=== PATIENT | male | born 1955 | race Caucasian/White ===

== ENCOUNTER → 2019-02-11 | Outpatient (CLI) | payer OTHER, SELFPAY ==
--- NOTE | 2019-02-11 | IMM_PTH ---
PATIENT: BELLA SHEA LOC: [facility] U#:[id number] AGE/SX: 63/M ROOM: RE02/11/[address]: Dr. Adal Medina MD : 1955 BED: DIS: 02/11/2019 SPEC #: [id number] RECD: 02/15/19 12:28 STATUS: KAUSHIK RUDOLPH #: [id number] PONCHO: 02/11/19 00:[address]: Adal Medina DEPT: IMMUNOHISTOCHEMISTRY RECD BY: Lou Campos ENTERED: 02/15/19 12:29 SP TYPE: IMMUNO OTHR DR: Dr. Krys Gonzalez MD Tissues: A - PROSTATE RIGHT D - PROSTATE LEFT Procedures: 34BE12 (add) P40 (add) 34BE12 (initial) PHYSICIAN & INSTITUTION [place] [id number] SPECIMEN INFORMATION: Tissue Source: A - Right prostate, apex, core biopsy, D - Left prostate, apex, core biopsy Clinical Info: Elevated PSA Specimen Number: [id number] A & D CPT code: 59485, 91763 x3 METHODOLOGY: Deparaffinized sections of prefer/formalin-fixed tissue or PAP/DQ stained slides are incubated with monoclonal/polyclonal antibodies/oligonucleotide probes. Localization is made via biotin free immunoperoxidase method. Appropriate controls are performed and reacted as expected. Results on target cell population are indicated in the following table: RESULTS: ANTIBODY / CLONE RESULT Block A P40 (BC28) negative 34BE12 (34BE12) negative Block D P40 (BC28) positive 34BE12 (34BE12) positive These tests were developed and their performance characteristics determined by [facility]. They may not have been cleared or approved by the U.S. Food and Drug Administration. The FDA has determined that such clearance or approval is not necessary. INTERPRETATION: A. Right prostate, apex, core biopsy: Adenocarcinoma. D. Left prostate, apex, core biopsy: Negative for carcinoma. SJ:therese 02/16/19
--- NOTE | 2019-02-11 | PROSBIL_PTH ---
PATIENT: BELLA SHEA LOC: [facility] U#:[id number] AGE/SX: 63/M ROOM: RE02/11/[address]: Dr. Adal Medina MD : 1955 BED: DIS: 02/11/2019 SPEC #: [id number] RECD: 02/12/19 12:27 STATUS: KAUSHIK RUDOLPH #: [id number] PONCHO: 02/11/19 00:[address]: Adal Medina DEPT: SURGICAL PATHOLOGY RECD BY: Zoltan Ramon ENTERED: 02/12/19 12:28 SP TYPE: PROST BX CY DR: Dr. Krys Gonzalez MD Tissues: A - PROSTATE RIGHT B - PROSTATE RIGHT C - PROSTATE RIGHT D - PROSTATE LEFT E - PROSTATE LEFT F - PROSTATE LEFT Procedures: PROSTATE BX HEADER OPERATION: Prostate biopsy PRE-OP DIAGNOSIS: Elevated PSA TISSUE SUBMITTED: A - Right apex, B - Right mid, C - Right base, D - Left apex, E - Left mid, F - Left base MICROSCOPIC DIAGNOSIS A. Right prostate, apex, core biopsy: Prostatic adenocarcinoma: [place] grade: 4 + 3 =7 Number of cores involved: 2 out of 2 Proportion of tissue involved: 5 to 10% Perineural invasion: Not identified. Greatest tumor length: 0.2 cm See comment. B. Right prostate, mid, core biopsy: Prostatic adenocarcinoma: Soha grade: 4+3=7 Number of cores involved: 2 out of 2 Proportion of tissue involved: ~50% Perineural invasion: present, focal Greatest tumor length: 1 cm C. Right prostate, base, core biopsy: Prostatic adenocarcinoma: Soha grade: 3+4=7 Number of cores involved: 2 out of 2 Proportion of tissue involved: ~25% Perineural invasion: Not identified. Greatest tumor length: 0.8 cm, discontinuous D. Left prostate, apex, core biopsy: Prostatic tissue, negative for malignancy. See comment. E. Left prostate, mid, core biopsy: Prostatic adenocarcinoma: Soha grade: 3+4=7 Number of cores involved: 2 out of 2 Proportion of tissue involved: ~40% Perineural invasion: Not identified. Greatest tumor length: 0.3 cm, discontinuous Focal high-grade prostatic intraepithelial neoplasia (HGPIN). F. Left prostate, base, core biopsy: Focal high-grade prostatic intraepithelial neoplasia (HGPIN). SJ:therese 02/15/19 COMMENT A & D. Immunohistochemistry ([id number]) supports the above diagnosis. Please make reference to previous specimen ([id number]) right and left prostate, needle core biopsy with diagnosis of no evidence of malignancy. Case has been reviewed in consultation with Dr. Gay who concurs with the above diagnosis. IDC:AM MICROSCOPIC DESCRIPTION Slides are reviewed. GROSS DESCRIPTION A - Received is one container designated prostate, right apex. The specimen consists of two elongated fragments of light hood-white soft tissue measuring 0.5 and 0.8 cm in length and 0.1 cm in diameter. The specimen is totally submitted in one cassette. B - Received is one container designated prostate, right mid. The specimen consists of two elongated fragments of light hood-white soft tissue each measuring 1.5 cm in length and 0.1 cm in diameter. The specimen is totally submitted in one cassette. C - Received is one container designated prostate, right base. The specimen consists of two elongated fragments of light hood-white soft tissue each measuring 1.2 cm in length and 0.1 cm in diameter. The specimen is totally submitted in one cassette. D - Received is one container designated prostate, left apex. The specimen consists of two elongated fragments of light hood-white soft tissue each measuring 1 cm in length and 0.1 cm in diameter. The specimen is totally submitted in one cassette. E - Received is one container designated prostate, left mid. The specimen consists of two elongated fragments of light hood-white soft tissue measuring 0.8 and 1 cm in length and 0.1 cm in diameter. The specimen is totally submitted in one cassette. F - Received is one container designated prostate, left base. The specimen consists of two elongated fragments of light hood-white soft tissue each measuring 1.2 cm in length and 0.1 cm in diameter. The specimen is totally submitted in one cassette. / SJ:rg 02/12/19 TC:0 [facility]: 03090 x6 ADDENDUM ADDENDUM ADDENDUM ADDENDUM ADDENDUM ADDENDUM ADDENDUM ADDENDUM ADDENDUM ADDENDUM ADDENDUM ADDENDUM ADDENDUM ADDENDUM ADDENDUM ADDENDUM ADDENDUM ADDENDUM ADDENDUM ADDENDUM ADDENDUM ADDENDUM ADDENDUM ADDENDUM ADDENDUM ADDENDUM ADDENDUM ADDENDUM ADDENDUM 05/05/2019 11:11 ADDENDUM 05/05/2019 11:11 ADDENDUM 05/05/2019 11:11 ADDENDUM 05/05/2019 11:11 ADDENDUM 05/05/2019 11:11 This addendum is added to incorporate an outside pathology consultation report. The case was examined at [facility] (#[id number]) and the following diagnosis was rendered. A. Right prostate, apex, core biopsy: - Prostatic adenocarcinoma, Soha score 7 (4+3), grade group 3, involving about 10% of prostate tissue volume and 2 of 2 needle core fragments. - No perineural invasion identified. B. Right prostate, mid, core biopsy: - Prostatic adenocarcinoma, [place] score 9 (4+5), grade group 5, involving about 50% of prostate tissue volume (with tertiary pattern 3) and 2 of 2 needle core fragments. - Perineural invasion is seen. C. Right prostate, base, core biopsy: - Prostatic adenocarcinoma, [place] score 6 (3+3), grade group 1, involving about 25% of prostate tissue volume and 2 of 2 needle core fragments. - No perineural invasion identified. D. Left prostate, apex, core biopsy: - Benign prostate tissue. E. Left prostate, mid, core biopsy: - Prostatic adenocarcinoma, [place] score 6 (3+3), grade group 1, involving about 40% of prostate tissue volume and 2 of 2 needle core fragments. - No perineural invasion identified. F. Left prostate, base, core biopsy: - Benign prostate tissue. Please see complete above mentioned consultation report in EMR
== END | disposition home or self-care (01) ==
PROVIDERS: Family Provider Family Medicine; PCP Family Medicine; Referring Provider Urology; Visit Provider Urology
DX: R97.20 Elevated prostate specific antigen [PSA] (principal)
CPT/HCPCS: 88305; 88341; 88342; G0416

== ENCOUNTER → 2019-02-19 08:45 | Outpatient (CLI) | payer OTHER, SELFPAY ==
--- NOTE | 2019-02-19 08:54 | CT_ITS ---
STUDY: CT ABDOMEN AND PELVIS WITH CONTRAST REASON FOR EXAM: Male, 63 years old. Prostate cancer. Study performed for staging. RADIATION DOSAGE (If Supplied By Facility): CTDIvol = ( 12.51 ) mGy, DLP = ( 567.26 ) mGycm TECHNIQUE: Transaxial images were obtained from the dome of the diaphragm to the symphysis pubis without oral contrast. Isovue 300 100 IV was administered. Sagittal and coronal images were reconstructed. Individualized dose optimization techniques were used for this CT. COMPARISON: None. FINDINGS: The visualized lung bases are unremarkable. The visualized portions of the heart are within normal limits. Normal liver. Normal gallbladder and extrahepatic biliary system. Normal spleen. Normal pancreas. Normal bilateral adrenal glands. Normal right kidney. Normal left kidney. Normal visualized stomach. Normal small intestine. There are multiple colonic diverticula consistent with diverticulosis. The appendix is visualized and appears normal. Normal abdominal aorta. Normal inferior vena cava. Normal retroperitoneum. Normal urinary bladder. There is a small umbilical hernia containing fat. Normal osseous structures. CT/Abdomen/Pelvis WITH Contrast IMPRESSION: Colon diverticulosis. There is a small umbilical hernia containing fat. There is no evidence of metastatic lesions in the abdomen or the pelvis. Electronically Signed: Mansi Manjarrez, at 2:19 EDT Tel , Service support ,
[2019-02-19 09:11] LABS: CREATININE FINGERSTICK 1.1 mg/dL (0.70-1.30); EGFR FINGERSTICK > 60.0000 mL/min (>60)
== END ==
PROVIDERS: Family Provider Family Medicine; PCP Family Medicine; Referring Provider Urology; Visit Provider Urology
DX: C61 Malignant neoplasm of prostate (principal)
CPT/HCPCS: 74177; Q9967

== ENCOUNTER → 2019-02-24 09:16 | Outpatient (CLI) | payer OTHER, SELFPAY ==
--- NOTE | 2019-02-24 09:18 | NM_ITS ---
CLINICAL: 63-year-old male with reported history of primary prostate carcinoma. WHOLE BODY 99m Tc MDP RADIONUCLIDE BONE SCINTIGRAPHY COMPARISON: CT of the abdomen-pelvis report 02/19/2019 FINDINGS: Following the intravenous administration of 25.6 mCi of 99m Tc MDP, whole body bone images reveal: 1. Increased radiopharmaceutical concentration is identified in the acromioclavicular, glenohumeral and sternoclavicular compartments of both shoulders, lower cervical spine posteriorly on the left and right, fifth lumbar vertebra posteriorly on the right, the right wrist, bilateral knees, and the medial compartment of the right ankle. 2. The remaining skeletal structures are scintigraphically unremarkable with normal-appearing renal images and urinary bladder activity identified. NM/Bone Scan Whole Body IMPRESSION: 1. The increase in tracer concentration identified in the cervical and lumbar spine, right wrist, both knees, right ankle, bilateral shoulders is most consistent with degenerative arthritis. 2. There is no definitive scintigraphic evidence of diffuse axial skeletal metastatic disease on the current examination. Electronically Signed: Axel Hu DO at 9:39 EDT Tel , Service support ,
== END ==
PROVIDERS: Family Provider Family Medicine; PCP Family Medicine; Referring Provider Urology; Visit Provider Urology
DX: C61 Malignant neoplasm of prostate (principal)
CPT/HCPCS: 78306

== ENCOUNTER 2019-04-14 06:00 | Day surgery (SDC) | payer OTHER, SELFPAY ==
[2019-04-06 10:07] VITALS: BP 110/55; PULSE 65; RESP 18; TEMP 37; O2SAT 99; BMI 23.9
--- NOTE | 2019-04-06 10:32 | SDCEKG_ITS ---
Test Reason : Blood Pressure : / mmHG Vent. Rate : 056 BPM Atrial Rate : 056 BPM P-R Int : 134 ms QRS Dur : 088 ms QT Int : 410 ms P-R-T Axes : 067 054 047 degrees QTc Int : 395 ms Sinus bradycardia with sinus arrhythmia Otherwise normal ECG Confirmed by LARRY WARREN ([id number]), editor department MORGAN RUIZ ([id number]) on 04/09/2019 10:54:53 AM Referred By: Adal Medina Confirmed By:LARRY WARREN
[2019-04-06 11:51] LABS: Hematocrit 41.1 % (40-54); Hemoglobin 13.6 g/dl (13.0-16.5); Mean Corp Hgb Conc 33.1 g/gl (32-36); Mean Corpuscular Hgb 29.9 pg (27.0-32.0); Mean Corpuscular Volume 90.3 fL (80-94); Mean Platelet Vol. 9.2 fl (6.2-12.0); Platelet Count 285 K/mm3 (150-450); RBC Distribution Width CV 12.8 % (11.6-14.6); RBC Distribution Width SD 42.1 fl (35.1-43.9); Red Blood Count 4.55 M/mm3 (4.6-6.2); Scan Indicated on CBC? Y/N NO; White Blood Count 3.5 K/mm3 (4.4-11.0)
[2019-04-06 12:09] LABS: Anion Gap 3 (5-15); BUN 20 mg/dL (7-18); BUN/Creat Ratio 24.5 RATIO (10-20); Calcium,Total 8.5 mg/dL (8.5-10.1); Chloride 105 mmol/L (98-107); Creatinine, Serum 0.82 mg/dL (0.70-1.30); EST Glomerular Filtration Rate 102 mL/min (>60); Est Glom Filt Rate - Afr Amer 123 mL/min (>60); Estimated Creatinine Clearance 96.44 ml/min; Glucose 85 mg/dL (74-106); Potassium 4.1 mmol/L (3.5-5.1); Sodium Level 136 mmol/L (136-145)
[2019-04-14] VITALS (16 sets, daily range): BP systolic 89–128; BP diastolic 55–75; PULSE 44–68; RESP 16–20; TEMP 35.9–36.7; O2SAT 95–100; BMI 23.9
--- NOTE | 2019-04-14 07:30 | PROST_PTH ---
PATIENT: BELLA SHEA [place] [facility] [place][id number] AGE/SX: 64/M ROOM: RE04/14/[address]: Dr. Adal Medina MD : 1955 BED: DIS: 04/15/2019 SPEC #: [id number] RECD: 04/14/19 15:03 STATUS: KAUSHIK RUDOLPH #: [id number] PONCHO: 04/14/19 07:[address]: Adal Medina DEPT: SURGICAL PATHOLOGY RECD BY: Ray Wilson ENTERED: 04/15/19 07:59 SP TYPE: PROSTATE OTHR DR: Dr. Alexi Cruz MD Tissues: A - Prostate, NOS B - Prostate, NOS C - Lymph node of pelvis, NOS D - Lymph node of pelvis, NOS Procedures: Surgery Specimen Level IV Surgery Specimen Level HEADER OPERATION: Laparoscopic robotic radical prostatectomy with nerve monitor PRE-OP DIAGNOSIS: Prostate cancer TISSUE SUBMITTED: A - Prostate, B - Fat over prostate, C - Right pelvic lymph node, C - Left pelvic lymph node MICROSCOPIC DIAGNOSIS A. Prostate, radical prostatectomy: Adenocarcinoma. See cancer checklist. B. Fat over prostate, biopsy: Mature adipose tissue. No evidence of malignancy. C. Right pelvic lymph node, biopsy: Two out of two lymph nodes, negative for carcinoma. D. Left pelvic lymph node, biopsy: Mature adiposes tissue. See comment. AM:therese 04/16/19 COMMENT A. PROSTATE CANCER (RADICAL) SUMMARY: Procedure - radical prostatectomy Prostate size - 4.5 x 4 x 3.5 cm Lymph node sampling - pelvic lymph node dissection Histologic type - adenocarcinoma Histologic grade (Soha Pattern): Primary pattern - 3 Secondary pattern - 4 Tertiary pattern - 5 Total Hannacroix score - 8 (5+3) Tumor Quantitation: Tumor size - 3 x 2.5 x 2 cm (from glass slides) Extraprostatic extension - not identified Seminal vesicle invasion - not identified Margins - margins involved by invasive carcinoma. Right posterior - lateral margin. Apical shaved margin. Treatment effect on carcinoma - not identified Lymph-Vascular invasion - not identified Perineural invasion - present (extensive) Regional lymph nodes: Number examined - 2 Number involved - 0 See specimen C. PATHOLOGIC STAGE: pT2c N0 Mx The above summary is in compliance with [employer] [place] [employer] (CAP) Cancer Protocols Checklist and [place] Joint Committee on Cancer (AJCC), Staging Manual, 8th Ed. D. Lymphoid tissue is not represented in the biopsy. Clinical correlation is suggested. Case has been reviewed in consultation with Dr. Burgos who concurs with the above diagnosis. IDC:CE MICROSCOPIC DESCRIPTION Slides are reviewed. GROSS DESCRIPTION A - Received in fixative is one container labeled with the patient's name and designated prostate. The specimen consists of a prostate with attached seminal vesicles. The prostate gland measures 4.5 cm transversely, 3.5 cm craniocaudally and 4 cm anterior-posteriorly. On palpation, no mass lesions are identified. The specimen weighs 46.7 gm and is differentially inked as follows: anterior surface - red, right half - blue and posterior portion of the gland in black ink. On palpation, no rubbery nodularity or mass lesions are identified. The prostate is cut from apex to base of gland at approximately 3 to 4 mm sections. No distinct mass lesions are identified. Communication And Outreach Manager sections are submitted as follows: 1 - apex (distal urethral margin, shave), 2 - bladder shave, 3 - seminal vesicles, 4 - most basal section of prostate, 5-9 - apex of gland, 10-15 - mid portion of gland, 16-19 - basal portion of gland. B - Received in fixative is one container labeled with the patient's name and designated fat over prostate. The specimen consists of an irregular fragment of fatty tissue measuring 4.5 x 2 x 0.7 cm. No mass lesions are identified. The specimen is submitted in its entirety in one cassette. C - Received in fixative is one container labeled with the patient's name and designated right pelvic lymph node. The specimen consists of an irregular fragment of somewhat indurated yellow fatty tissue measuring 2.5 x 2 x 0.2 cm. The specimen is submitted in its entirety in one cassette. D - Received in fixative is one container labeled with the patient's name and designated left pelvic lymph node. The specimen consists of an irregular fragment of somewhat indurated yellow fatty tissue measuring 3 x 3 x 1 cm. No distinct nodules resembling lymph nodes are palpated. The specimen is sectioned and totally submitted in two cassettes. / AM:therese 04/15/19 TC:0 CPT: 71674, 65491 x3
[2019-04-14] MEDS: Cefazolin 2 GM in 0.9% Normal Saline 100 ML IV (07:44)
--- NOTE | 2019-04-14 11:37 | OP.PCM_ITS ---
Report of Operation Date of Procedure: 04/14/19 Pre-Operative Diagnosis: Prostate cancer Post-Operative Diagnosis: Same Surgery/Procedure Performed:: Laparoscopic robotic assisted radical prostatectomy with bilateral nerve sparing, bilateral pelvic lymph node dissection, suture suspension of the urethra, EMG monitoring of the pelvic nerves and urethral sphincter Description of Surgical Findings:: 64-year-old male with prostate cancer, we discussed the options of management for his prostate cancer including surgery radical prostatectomy observation. Patient was fairly young and healthy he wants to proceed with curative intent surgery he also was very concerned about losing erection so we will do nerve sparing but he understands that there is always a risk of potential for loss of erections incontinence failure to cure him of surgery and requiring more treatments after surgery such as radiation and chemotherapy hormone therapy. After reviewing this with the patient and his and the family he signed the consent form and working to proceed with surgery today. 64-year-old male taken back to the operating room at the smooth induction of general anesthesia he was placed in Supine on the table in the dorsolithotomy position with the legs in stirrups for approach the prostate with a radical prostatectomy with a robot. The abdomen was shaved prepped and draped in usual sterile fashion made an incision above the umbilicus carried down to the fascia and entered the peritoneal cavity with a Veress needle insufflated the peritoneal peritoneal cavity with CO2 gas and then docked my camera arm right arm left arm second left arm operations manager assistant suction and then the air seal port. After the ports were placed and the robot was docked I first released the sigmoid colon off the lateral wall I then went down deep to the pelvis below the bladder and open up the space of Carrillo below the bladder and dissected out the vas deferens and seminal vesicle bilaterally created a nice space above the 90s fascia from the prostate I then dropped the bladder to create created the space of Retzius and put the bladder on traction and then went to the pelvic lymph nodes on the right side identified the landmarks there was the iliac vein the obturator nerve the left lateral pelvic sidewall the noted [place] all the nodes packet in this area were dissected out and sent off as specimen we went to then to the left side, the other side and d issected out the space of the obturator space again in the pelvic lymph nodes the fishing vessel operator space identified the obturator nerve the obturator vein and artery the iliac vein noted [place] in the lateral pelvic sidewall after all this was dissected out then I went to the prostate we incised the puboprostatic ligaments we opened up the fascia over the prostate and the apex dissected the apex off the levator muscles placed a stitch in the dorsal vein complex then came back to the bladder neck dissected between the bladder and the prostate with electrocautery we then passed the EMG electrodes into the abdomen place the electrode to the lateral pelvic wall identified the nerve bundles are running deep in the pelvis and the right side and the nerve bundles are running deep in the pelvis and the left side and then also the nerve bundle close to the sphincter once with these were identified the location was noted that I had started dissection of the prostate took the apical tissue and freed up the fascia off the prostate from the apex back to the base on the right side then took the vascular pedicle on the right side and identified the neurovascular bundle on the right side and slowly tease it off the posterior aspect of the prostate midway through the dissection there was a little bit adherent had to be carried very careful to dissect the neurovascular bundle off the prostate as to avoid leaving any tissue behind and then finally got the neurovascular bundle dissected all the way up to the apex apex fairly good dissection on the right side. Went went to the left side again incised the endopelvic fascia on the left side over the top of the prostate rolled the fascia off the prostate below the draining vessels I then identified the nerve neurovascular bundle came back to the left side pedicle took the pedicle and then got below the prostate and then slowly teased the neurovascular bundle off the prostate of the left side all the way to the apex this I came up very nicely very complete dissection there was no adherence to the neurovascular bundle on the left side to the prostate like the right side was able to free it up very nicely all the way to the apex we then checked the EMG electrode again there was good stimulation in the left side good stimulation on the right side both nerves were intact then went to the sphincter complex we transected through the dorsal vein complex case an extra stitch in the dorsal vein complex and then transected through the urethra the prostate was then attached an Endo Catch bag we then performed a suture suspension of the urethra using 3-0 Vicryl stitches this was then spun the urethra and then we brought the bladder neck to the urethra and then over the catheter we closed the bladder and then we closed the top of the bladder we did the anastomosis to the bladder to the urethra then there was a little Of the top of the bladder we closed separately we then put a [place] tip catheter in the bladder we filled the bladder up the water and there was no leakage from the bladder and then put 10 cc in the balloon put her back in traction then at this point the robot was undocked we extracted the prostate through the supraumbili kt site we closed our air seal port then to 1012 Edwar Scruggs stitch. We entered the clozapine incisions with subcuticular stitches Grant was flushed and was draining easily and flush flushed very easily with no blood clots and then the patient anesthetic is currently being reversed. Type of Anesthesia:: General Drains: grant. Estimated Blood Loss (mL): 200 - Admit VTE Documentation VTE Present on Admission: No VTE Mechan Device Prophylaxis: SCD's
[2019-04-14 12:39] LABS: Hematocrit 35.9 % (40-54); Mean Corp Hgb Conc 33.4 g/gl (32-36); Mean Corpuscular Hgb 30.2 pg (27.0-32.0); Mean Corpuscular Volume 90.4 fL (80-94); Mean Platelet Vol. 8.8 fl (6.2-12.0); Platelet Count 207 K/mm3 (150-450); RBC Distribution Width CV 12.7 % (11.6-14.6); RBC Distribution Width SD 41.8 fl (35.1-43.9); Red Blood Count 3.97 M/mm3 (4.6-6.2); White Blood Count 6.9 K/mm3 (4.4-11.0)
[2019-04-14 12:46] LABS: Scan Indicated on CBC? Y/N NO
[2019-04-14 12:55] LABS: Anion Gap 3 (5-15); BUN 13 mg/dL (7-18); BUN/Creat Ratio 15.2 RATIO (10-20); Calcium,Total 7.9 mg/dL (8.5-10.1); Chloride 106 mmol/L (98-107); Creatinine, Serum 0.86 mg/dL (0.70-1.30); EST Glomerular Filtration Rate 96 mL/min (>60); Est Glom Filt Rate - Afr Amer 116 mL/min (>60); Estimated Creatinine Clearance 91.96 ml/min; Glucose 138 mg/dL (74-106); Potassium 4.2 mmol/L (3.5-5.1); Sodium Level 137 mmol/L (136-145)
--- NOTE | 2019-04-14 14:08 | NURSING ---
GILDA IN PACU NOTIFIED OF PT C/O RIGHT EYE PAIN AND LIGHT SENSITIVTY, PT UNABLE TO OPEN EYE-SHE WILL NOTIFIY ANESTHESIA PT ABLE TO SMILE AND HAND GRASPS EQUAL AND STRONG
[2019-04-14 14:26] LABS: Bedside Glucose 130 mg/dL (70-110)
--- NOTE | 2019-04-14 14:42 | NURSING ---
PT C/O RIGHT EYE PAIN, INABLITY TO OPEN , WHEN OPENED BY NURSE, EYE TEARS AND PT SQUEEZES EYE SHUT, PT HAND GRASPS ARE EQUAL (PT LEFT HAND AND RIGHT SL. WEAKER) PT SMILE IS NOT EVEN W/ RIGHT DROOP, STATES HE HAS A FUNNY SMILE BUT NOT THAT EXAGERATED-PT IS STILL GROGGY FROM SURGERY, IS ABLE TO ANSWER SIMPLE QUESTIONS-STROK TEAM CALLED, STROKE TEAM ARRIVED AND ASSESSED PT AND THEY FELT AT THIS TIME, A CT WAS NOT INDICATED-DR SEVILLA IN ROOM- AT BEDSIDE-PT AND UPDATED REPORT GIVEN TO JULIANA PONCE NURSE-AT THIS TIME PT ALSO C/O GRITTINESS IN LEFT EYE-SPOKE W/ GILDA RN IN PACU AND IT WAS AGREED IF THE PT CONTINUED TO HAVE EYE SYMPTOMS, ANESTHESIA COULD BE CALLED FOR EYE OINTMENT-VSS, NO WORSENING OF SYMPTOMS, PT SMILE IMPROVED
[2019-04-14] MEDS: 0.45% Normal Saline 1,000 ML 125 ML IV ×2 (15:49→23:58)
[2019-04-14] MEDS: Ketorolac 15 MG/ML Vial IV ×2 (15:50→19:40)
[2019-04-14] MEDS: Gentamicin Sulfate 1 OPTH.BTL 2 DRP LEFT EYE ×2 (17:37→22:44)
[2019-04-14] MEDS: Pantoprazole Sodium 20 MG Tablet PO (17:39)
[2019-04-14] MEDS: Docusate Sodium 100 MG Capsule PO ×2 (17:40→22:44)
[2019-04-14] MEDS: Ciprofloxacin 500 MG Tablet PO (17:40)
[2019-04-14] MEDS: 0.9% NaCl Peripheral Flush Adult/Peds IV (19:40)
--- NOTE | 2019-04-14 20:02 | NURSING ---
sat at bedside, stood and ambulated to chair. pt alexandra well. denies feeling dizzy or lightheaded.
[2019-04-14 20:26] LABS: Bedside Glucose 182 mg/dL (70-110)
[2019-04-15] MEDS: Ketorolac 15 MG/ML Vial IV ×3 (01:42→13:41)
[2019-04-15] MEDS: Gentamicin Sulfate 1 OPTH.BTL 2 DRP LEFT EYE ×4 (01:42→13:40)
[2019-04-15] MEDS: 0.9% NaCl Peripheral Flush Adult/Peds IV ×2 (01:43→13:47)
[2019-04-15 01:46] VITALS: BP 109/64; PULSE 67; RESP 16; TEMP 36.9; O2SAT 98
[2019-04-15] MEDS: Enoxaparin 40 MG/0.4 ML Syringe SC (05:45)
[2019-04-15 06:23] LABS: Hematocrit 35.7 % (40-54); Hemoglobin 12.2 g/dl (13.0-16.5); Mean Corp Hgb Conc 34.2 g/gl (32-36); Mean Corpuscular Hgb 30.6 pg (27.0-32.0); Mean Corpuscular Volume 89.5 fL (80-94); Mean Platelet Vol. 9.3 fl (6.2-12.0); Platelet Count 245 K/mm3 (150-450); RBC Distribution Width CV 12.8 % (11.6-14.6); RBC Distribution Width SD 41.3 fl (35.1-43.9); Red Blood Count 3.99 M/mm3 (4.6-6.2); White Blood Count 6.7 K/mm3 (4.4-11.0)
[2019-04-15 06:24] LABS: Scan Indicated on CBC? Y/N NO
[2019-04-15 06:31] LABS: Anion Gap 7 (5-15); BUN 13 mg/dL (7-18); BUN/Creat Ratio 16.7 RATIO (10-20); Calcium,Total 7.9 mg/dL (8.5-10.1); Chloride 104 mmol/L (98-107); Creatinine, Serum 0.78 mg/dL (0.70-1.30); EST Glomerular Filtration Rate 107 mL/min (>60); Est Glom Filt Rate - Afr Amer 130 mL/min (>60); Estimated Creatinine Clearance 101.39 ml/min; Glucose 102 mg/dL (74-106); Potassium 4.2 mmol/L (3.5-5.1); Sodium Level 136 mmol/L (136-145)
--- NOTE | 2019-04-15 07:17 | DCINST_ITS ---
Discharge Diet: Light diet - advance as tolerated Discharge Activity: May Not Drive, May not drive while taking narcotic pain medications., May Shower Return to work on:: 05/26/19 May shower in (days): 1 Lifting Restrictions: no lifting. Call your doctor if your incision/area has: Continuous Slow Oozing, Sudden Increased Bleeding, Increased Pain/ Swelling, Increased Redness, Foul Smelling Discharge, Swelling at the incision site Call your doctor if you observe: Fever of 101 or Higher, Inability to have a bowel movement, Uncontrolled pain Suture Line Care: Avoid Pulling/Pushing, Avoid Pinching/Bending Cleanse incision/area with: Soap & Water Catheter: Pulliam to leg bag, Pulliam to large bag Drain: [place] Allergies/Adverse Reactions: Allergies No Known Allergies Allergy (Verified 04/06/19 09:58) Medications to take at Discharge Ciprofloxacin [Cipro] 500 mg PO BID #20 tab 04/14/19 Docusate Sodium [Colace] 100 mg PO BID #20 cap 04/14/19 Hydrocodone/Acetaminophen [Adrian 5-325 Tablet] 1 ea PO Q4H PRN PRN #14 tab 04/14/19 The following prescriptions were given: Hydrocodone/Acetaminophen [Adrian 5-325 Tablet] 1 ea PO Q4H PRN PRN #14 tab PRN Reason: Pain Ciprofloxacin [Cipro] 500 mg PO BID #20 tab Docusate Sodium [Colace] 100 mg PO BID #20 cap Primary Care Physician: Alexi Cruz [Primary Care Provider] - Test Results: Test results from this visit will be discussed in further detail at your follow- up appointment, if applicable. Please Follow Up With: Adal Medina MD When: please call to make an appointment.
[2019-04-15 07:50] VITALS: BP 102/50; PULSE 73; RESP 18; TEMP 37.1; O2SAT 98
[2019-04-15] MEDS: Pantoprazole Sodium 20 MG Tablet PO (09:23)
[2019-04-15] MEDS: Docusate Sodium 100 MG Capsule PO (09:23)
[2019-04-15] MEDS: Ciprofloxacin 500 MG Tablet PO (09:23)
[2019-04-15] MEDS: Magnesium Hydroxide 30 ML UDC 15 ML PO (10:20)
[2019-04-15 13:49] VITALS: BP 110/66; PULSE 72; RESP 18; TEMP 37.1; O2SAT 97
== END 2019-04-15 14:25 | disposition home or self-care (01) ==
LOC: SDC 04-15 08:07 → MS3 04-15 08:07
PROVIDERS: Family Provider Family Medicine; PCP Family Medicine; Referring Provider Urology; Visit Provider Urology
PROC: 0VT04ZZ Resection of Prostate, Percutaneous Endoscopic Approach (ICD-10-PCS; CPT 55866; principal; 2019-04-14 07:10)
DX: C61 Malignant neoplasm of prostate (principal); K21.9 Gastro-esophageal reflux disease without esophagitis
CPT/HCPCS: 38570; 55866; 36415; 80048; 82962; 85027; 86850; 86900; 88305; 88307; 88309; 93005; J7040; J7120; A4216; J2405

== ENCOUNTER → 2019-11-16 09:54 | Outpatient (CLI) | payer OTHER, SELFPAY ==
[2019-11-16 09:33] VITALS: BMI 23.9
[2019-11-16 10:19] LABS: Hematocrit 41.3 % (40-54); Hemoglobin 13.6 g/dL (13.0-16.5); Mean Corp Hgb Conc 32.9 g/dL (32-36); Mean Corpuscular Hgb 30.8 pg (27.0-32.0); Mean Corpuscular Volume 93.7 fL (80-94); Mean Platelet Vol. 8.6 fl (6.2-12.0); Platelet Count 235 K/mm3 (150-450); RBC Distribution Width CV 12.7 % (11.6-14.6); RBC Distribution Width SD 43.5 fl (35.1-43.9); Red Blood Count 4.41 M/mm3 (4.6-6.2); White Blood Count 3.9 K/mm3 (4.4-11.0)
[2019-11-16 10:32] LABS: Anion Gap 3 (5-15); BUN 17 mg/dL (7-18); BUN/Creat Ratio 17.8 RATIO (10-20); Calcium,Total 8.6 mg/dL (8.5-10.1); Chloride 105 mmol/L (98-107); Creatinine, Serum 0.95 mg/dL (0.70-1.30); EST Glomerular Filtration Rate 85 mL/min (>60); Est Glom Filt Rate - Afr Amer 103 mL/min (>60); Glucose 95 mg/dL (74-106); Potassium 4.2 mmol/L (3.5-5.1); Sodium Level 138 mmol/L (136-145)
== END ==
PROVIDERS: Family Provider Family Medicine; PCP Family Medicine; Referring Provider Surgery; Visit Provider Surgery
DX: Z01.818 Encounter for other preprocedural examination (principal)
CPT/HCPCS: 36415; 80048; 85027

== ENCOUNTER 2019-11-25 09:59 | Day surgery (SDC) | payer SELFPAY, OTHER ==
[2019-08-24 14:39] VITALS: BMI 23.9
--- NOTE | 2019-11-16 03:47 | HP_ITS ---
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 Is patient in pain?: No Allergies No Known Allergies Allergy (Verified 11/16/19 09:32) Medications Aspirin [Aspir 81] 81 mg PO PRN PRN 11/12/19 [History Confirmed 11/16/19] PFSH Medical History Ventral incisional hernia without obstruction or gangrene (Acute) Incisional hernia (Acute) Prostate cancer (Acute) Surgical History History of robot-assisted laparoscopic radical prostatectomy (Acute ~04/14/19) Social History (Updated 11/16/19 @ 15:47 by Janel Avendano PA-C) Smoking Status: Never smoker alcohol intake: never substance use type: does not use HPI HPI HPI: BELLA SHEA, is a 64 M who presents to the office today for HPI HPI Surgical H&P: Yes HPI: BELLA SHEA, is a 64 M who presents to the office today for an update history and physical. Patient denies recent hospitalizations or illnesses. Patient notes his last bout of anesthesia, he had what was thought to be stroke- like symptoms, however patient noted his symptoms were then diagnosed with vagal symptoms. Patient denies previous cardiac history or pulmonary history. Patient' previous history per Dr. Lam: BELLA SHEA, is a 64 M who presents to the office today for surgical consultation regarding a ventral incisional hernia related to robotic prostatectomy that he had performed at the [facility] on April 14, [address] Medina.. Patient states that he has increased bulging and intermittent discomfort at the site. He apparently has lost 10 pounds in weight since his discharge. He has not been seen in follow-up by his primary care physician Dr. Cruz as the patient did not think that was needed. 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 To complicate matters the patient was instructed that he had an anesthetic complication with failure to resolve. The report that the patient and significant other provide is that the patient on the floor developed a right- sided facial droop and the stroke team was called. Apparently they did not feel that a CT was indicated. Dr. Igor Gomez by report was involved in that evaluation. But then the patient was gotten in a chair and again by significant other reports the patient became white pale hypotensive syncopal for several minutes with difficulty to arouse. Apparently the patient was simply observed. There was no report of requiring blood transfusion. I do not see any urology postoperative surgical note. Do not see any nursing notes describe this additional syncopal episode. The patient was simply told that this was a delayed reaction to anesthesia ROS General General: No weight change, appetite, fatigue, colon cancer, breast cancer or weakness HEENT HEENT: No difficulty swallowing, eye injury, eye surgery, swollen glands or hoarseness Endo Endocrine: No thyroid disease, diabetes mellitus, thyroid cancer, Hair loss, heat intolerance or cold intolerance Skin Skin: No rash or changing moles Breast Breast: No left breast lump, right breast lump, nipple discharge, breast pain, abnormal mammogram, abnormal US or breast enlargement Musc Musculoskeletal: No back problems, arthritis, rheumatoid arthritis, gout or joint pain Cardio Cardiovascular: No murmur, pacemaker, heart disease, atrial fibrillation, high blood pressure, heart attack, heart stent, palpitations, shortness of breat with exertion or chest pain Psych Psychiatric: No depression, anxiety or hearing voices Resp Respiratory: No shortness of breath, No sleep apnea, No cough, No COPD, No asthma, No emphysema, No wheezing Gastro Gastrointestinal: No abdominal pain, No nausea or vomiting, No diarrhea, No constipation, No blood in stool, No acid reflux, No hemorrhoids, No ulcers, No gallbladder problem, No black,tarry stools Jose Alberto Hematologic: No blood thinners, No blood disorders, No bleeding, No anemia, No blood clots Neuro Neurologic: No weakness Exam Const General: cooperative, healthy appearing, comfortable, no acute distress HENMT Head: normal to inspection Eyes General: appearance normal, both eyes and all related structures Neck Neck: normal visual inspection Neck mass: No Chest Breast Palpation: No nipple discharge Resp Effort & Inspection: normal respiratory effort Auscultation: clear to auscultation bilaterally Cardio Rate: regular rate Rhythm: regular rhythm Heart Sounds: no murmurs GI Inspection: normal to inspection Palpation: soft, hernia (ventral incisional ) Skin General: no rashes or lesions noted Neuro General: no focal motor deficits, CN's II-XI intact bilaterally Extrem General: normal to inspection Psych Appearance: grossly normal Affect: normal affect Assessment & Plan Problems 1. Ventral incisional hernia without obstruction or gangrene K43.[address] Lam will plan to perform an open possible conversion to laparoscopic ventral incisional hernia repair with mesh. Procedure details, risks and benefits have been reviewed. Patient and his spouse have had the opportunity to ask and have questions answered. Patient verbally understands and agrees with the plan. Coding Level of Care Code No Charge Diagnoses Ventral incisional hernia without obstruction or gangrene K43.2 Comment Update H&P 11/16/19 1547 <Electronically signed by Janel gordon PA-C> Date _ Janel Avendano PA-C
[2019-11-16 09:33] VITALS: BMI 23.9
[2019-11-25] VITALS (7 sets, daily range): BP systolic 117–135; BP diastolic 74–98; PULSE 48–63; RESP 15–16; TEMP 36.2–36.9; O2SAT 99–100; BMI 24.0
[2019-11-25] MEDS: Lactated Ringers 1,000 ML 100 ML IV (10:28)
--- NOTE | 2019-11-25 11:59 | PCM.HP.BLA ---
Problem List (1) Ventral incisional hernia without obstruction or gangrene Status: Acute History and Physical Date of Admission: 11/25/19 Intake Visit Reasons: update h&p 11-25 ventral incis hernia RC Chief Complaint: update H&P for hernia repair Sound Recording Technician Required: No Is patient in pain?: No Allergies No Known Allergies Allergy (Verified 11/16/19 09:32) Medications Aspirin [Aspir 81] 81 mg PO PRN PRN 11/12/19 [History Confirmed 11/16/19] PFS Medical History Ventral incisional hernia without obstruction or gangrene (Acute) Incisional hernia (Acute) Prostate cancer (Acute) Surgical History History of robot-assisted laparoscopic radical prostatectomy (Acute ~04/14/19) Social History (Updated 11/16/19 @ 15:47 by Janel Avendano PA-C) Smoking Status: Never smoker alcohol intake: never substance use type: does not use HPI HPI HPI: BELLA SHEA, is a 64 M who presents to the office today for HPI HPI Surgical H&P: Yes HPI: BELLA SHEA, is a 64 M who presents to the office today for an update history and physical. Patient denies recent hospitalizations or illnesses. Patient notes his last bout of anesthesia, he had what was thought to be stroke-like symptoms, however patient noted his symptoms were then diagnosed with vagal symptoms. Patient denies previous cardiac history or pulmonary history. Patient' previous history per Dr. Lam: BELLA SHEA, is a 64 M who presents to the office today for surgical consultation regarding a ventral incisional hernia related to robotic prostatectomy that he had performed at the [facility] on April 14, [address] Medina.. Patient states that he has increased bulging and intermittent discomfort at the site. He apparently has lost 10 pounds in weight since his discharge. He has not been seen in follow-up by his primary care physician Dr. Cruz as the patient did not think that was needed. 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 To complicate matters the patient was instructed that he had an anesthetic complication with failure to resolve. The report that the patient and significant other provide is that the patient on the floor developed a right-sided facial droop and the stroke team was called. Apparently they did not feel that a CT was indicated. Dr. Igor Gomez by report was involved in that evaluation. But then the patient was gotten in a chair and again by significant other reports the patient became white pale hypotensive syncopal for several minutes with difficulty to arouse. Apparently the patient was simply observed. There was no report of requiring blood transfusion. I do not see any urology postoperative surgical note. Do not see any nursing notes describe this additional syncopal episode. The patient was simply told that this was a delayed reaction to anesthesia ROS General General: No weight change, appetite, fatigue, colon cancer, breast cancer or weakness HEENT HEENT: No difficulty swallowing, eye injury, eye surgery, swollen glands or hoarseness Endo Endocrine: No thyroid disease, diabetes mellitus, thyroid cancer, Hair loss, heat intolerance or cold intolerance Skin Skin: No rash or changing moles Breast Breast: No left breast lump, right breast lump, nipple discharge, breast pain, abnormal mammogram, abnormal US or breast enlargement Musc Musculoskeletal: No back problems, arthritis, rheumatoid arthritis, gout or joint pain Cardio Cardiovascular: No murmur, pacemaker, heart disease, atrial fibrillation, high blood pressure, heart attack, heart stent, palpitations, shortness of breat with exertion or chest pain Psych Psychiatric: No depression, anxiety or hearing voices Resp Respiratory: No shortness of breath, No sleep apnea, No cough, No COPD, No asthma, No emphysema, No wheezing Gastro Gastrointestinal: No abdominal pain, No nausea or vomiting, No diarrhea, No constipation, No blood in stool, No acid reflux, No hemorrhoids, No ulcers, No gallbladder problem, No black,tarry stools Jose Alberto Hematologic: No blood thinners, No blood disorders, No bleeding, No anemia, No blood clots Neuro Neurologic: No weakness Exam Const General: cooperative, healthy appearing, comfortable, no acute distress [facility] Head: normal to inspection Eyes General: appearance normal, both eyes and all related structures Neck Neck: normal visual inspection Neck mass: No Chest Breast Palpation: No nipple discharge Resp Effort & Inspection: normal respiratory effort Auscultation: clear to auscultation bilaterally Cardio Rate: regular rate Rhythm: regular rhythm Heart Sounds: no murmurs GI Inspection: normal to inspection Palpation: soft, hernia (ventral incisional ) Skin General: no rashes or lesions noted Neuro General: no focal motor deficits, CN's II-XI intact bilaterally Extrem General: normal to inspection Psych Appearance: grossly normal Affect: normal affect Assessment & Plan Problems 1. Ventral incisional hernia without obstruction or gangrene K43.[address] Lam will plan to perform an open possible conversion to laparoscopic ventral incisional hernia repair with mesh. Procedure details, risks and benefits have been reviewed. Patient and his spouse have had the opportunity to ask and have questions answered. Patient verbally understands and agrees with the plan. Coding Level of Care Code No Charge Diagnoses Ventral incisional hernia without obstruction or gangrene K43.2 Comment Update H&P 11/16/19 1547 <Electronically signed by Janel Avendano PA-C> Date Janel Avendano PA-C I have re-examined the patient. There are no clinical changes since date of exam.
--- NOTE | 2019-11-25 12:00 | DCINST_ITS ---
Discharge Diet: Light diet - advance as tolerated - if you have questions about your diet instructions, please talk to you doctor. Discharge Activity: May Not Drive - for 5-7 days or while taking narcotic pain medicine. May shower in (days): 2 Lifting Restrictions: 10 pounds Call your doctor if your incision/area has: Continuous Slow Oozing, Sudden Increased Bleeding, Increased Pain/ Swelling, Increased Redness, Foul Smelling Discharge Call your doctor if you observe: Fever of 101 or Higher Suture Line Care: Avoid Pulling/Pushing, Avoid Pinching/Bending Additional Dressing/Incision Instructions:: You may leave the white tape pressure dressing on for 2 days. You may then remove that and revealed the plastic dressing over which now you may shower. Change or remove plastic dres sing in 2 days after removal of the white tape dressing.. Leave steri-strips in place for 1 week. Allergies/Adverse Reactions: Allergies No Known Allergies Allergy (Verified 11/25/19 10:12) Medications to take at Discharge Aspirin [Aspir 81] 81 mg PO PRN PRN 11/12/19 Hydrocodone Bitart/Apap 5-325 [[place] 5MG-325MG] 1 tab PO Q6H PRN PRN 3 Days #10 tab 11/25/19 The following prescriptions were given: Hydrocodone Bitart/Apap 5-325 [[place] 5MG-325MG] 1 tab PO Q6H PRN PRN 3 Days #10 tab PRN Reason: Pain Transmission Status: Received by [id number] Primary Care Physician: Alexi Cruz MD [Primary Care Provider] - Test Results: Test results from this visit will be discussed in further detail at your follow- up appointment, if applicable. Please Follow Up With: Dewayne Lam MD - [phone] When: Call to make an appointment to be seen in about 10 days.
[2019-11-25] MEDS: Cefazolin 2 GM in 0.9% Normal Saline 100 ML IV (12:06)
[2019-11-25] MEDS: Bupivacaine 0.25% 30 ML Vial (13:35)
--- NOTE | 2019-11-25 13:42 | OP.PCM_ITS ---
Problem List (1) Ventral incisional hernia without obstruction or gangrene Status: Acute Report of Operation Date of Procedure: 11/25/19 Pre-Operative Diagnosis: Symptomatic supraumbilical ventral incisional hernia related to robotic prostatectomy Post-Operative Diagnosis: Supraumbilical ventral incisional hernia related to robotic prostatectomy associated with a small umbilical hernia Surgery/Procedure Performed:: Supra umbilical ventral incisional herniorrhaphy with ventralex ST hernia patch. Lot number [id number]. Reference #[id number]. Expiry date 04/27/2021 Description of Surgical Findings:: Timeout and informed consent was obtained. 64-year-old gentleman was taken out from placement table underwent general anesthesia. Ancef 2 g were given intravenously. The abdomen was sterilely prepped and draped. Ioban draping was used as well. Throughout the procedure 30 cc of 0.25% Marcaine was used as a local anesthetic. Patient had a transverse supraumbilical incision. This was transversely elliptically excised. The skin scar was inspected and then discarded. The hernia sac was identified it was carefully dissected free then the retroperitoneal space was opened carefully dissecting free the peritoneum to allow for eventual placement of the mesh. I performed this circumferentially. I then placed a 8 cm diameter ventral X mesh and I secured the tails laterally with interrupted 0 Nurolon. I then approximated the fascia with the same. At intervals I included the midportion of the mesh with a 0 Nurolon closure. A total of 15 sutures were required for closure. I felt that I got back to good healthy tissue however there was some defect that had to be spanned. The tissue came together but slight tension noted. The mesh was nicely incorporated in the retrorectus space. Then I closed the wound with a deep layer of interrupted 4-0 Monocryl subcutaneous and then a running subcuticular 4-0 Monocryl. I had carefully done a nerve block with visualization around the repair area. Steri- Strips Telfa OpSite dressings applied followed by bulky dry pressure dressing. Wound and instrument and needle counts reported the surgeon be correct. Blood loss was minimal. He tolerated the procedure well was taken to the recovery area in satisfactory condition without apparent complication. Specimens none. Drains none. Blood loss minimal Dewayne Lam M.D., F.A.C.S. Type of Anesthesia:: General Anesthesiologist: Albino Sol
[2019-11-25] MEDS: HYDROcodone Bitartrate/Apap 5/325 Tablet PO (15:32)
== END 2019-11-25 17:36 | disposition home or self-care (01) ==
LOC: SDC 10:00 → AC 10:02
PROVIDERS: Family Provider Family Medicine; PCP Family Medicine; Referring Provider Surgery; Visit Provider Surgery
PROC: 0WQF4ZZ Repair Abdominal Wall, Percutaneous Endoscopic Approach (ICD-10-PCS; CPT 49560; principal; 2019-11-25 11:45)
DX: K43.2 Incisional hernia without obstruction or gangrene (principal); Z79.82 Long term (current) use of aspirin; Z85.46 Personal history of malignant neoplasm of prostate; Z90.79 Acquired absence of other genital organ(s)
CPT/HCPCS: 49560; 49568; J7120; C1781; J2405

== ENCOUNTER → 2023-10-27 | Outpatient (CLI) | payer MEDICARE, SELFPAY | END | disposition home or self-care (01) | PROVIDERS: PCP Family Medicine; Referring Provider Urology; Visit Provider Urology | DX: C61 Malignant neoplasm of prostate (principal) | CPT/HCPCS: 36415; 84153 ==

== ENCOUNTER → 2024-01-21 | Outpatient (CLI) | payer MEDICARE, OTHER, SELFPAY ==
--- NOTE | 2024-01-21 11:04 | MRI_ITS ---
EXAM: MR PELVIS WITHOUT AND WITH INTRAVENOUS CONTRAST CLINICAL INDICATION: biochemical recurrence, eval for pelvic disease -- PSA-05/01/23 0.12,,,PSA 12/22/23-0.23 TECHNIQUE: Multiplanar and multisequence MR images of the pelvis without and with intravenous contrast. CONTRAST: IV 15ml clariscan COMPARISON: 2.6.24 PET FINDINGS: BOWEL: There are multiple colonic diverticula consistent with diverticulosis. APPENDIX: No evidence of acute appendicitis. INTRAPERITONEAL SPACE: Unremarkable. No ascites or other fluid collection. BLADDER: Unremarkable. Normal urinary bladder. PROSTATE: Prostate gland appears to be surgically absent. SEMINAL VESICLES: Unremarkable as visualized. No nodule or cyst. BONES/JOINTS: Unremarkable. No suspicious lytic or blastic abnormality. SOFT TISSUES: There is an umbilical hernia containing fat. VASCULATURE: There are calcifications of the abdominal aorta. This is consistent for atherosclerotic disease. There is NO abdominal aortic aneurysm. Vascular workup can be obtained based on clinical correlation. LYMPH NODES: Unremarkable. No enlarged lymph nodes. MRI/Pelvis W/WO Contrast IMPRESSION: 1. Prostate gland appears to be surgically absent. 2. There is an umbilical hernia containing fat. 3. There are multiple colonic diverticula consistent with diverticulosis. Electronically Signed: Yordan Deluna MD at 14:55 EST ,
--- OUTSIDE RECORDS SUMMARY | 2024-01-21 11:18 | XMS RPT_ITS | CCD ---
Author Name Unknown Address [address] [place] [address] Organization [facility] Care Team Providers Care Semiconductor Equipment Technician Name Role Phone Gilson Iraheta MD Unavailable Janel Avendano PA-C Unavailable LES SARMIENTO Admitting Unavailable LES SARMIENTO Attending Unavailable LES SARMIENTO Primary Care Unavailable MATHEW KIRKPATRICK Consulting Unavailable MATHEW KIRKPATRICK Referring Unavailable PROVIDER, UNKNOWN Consulting Unavailable PROVIDER, UNKNOWN Consulting Unavailable PROVIDER, UNKNOWN Consulting Unavailable Mathew Kirkpatrick MD Unavailable [facility] Unavailable [phone] General Surgery Provider Unavailable Unavail able Nanda Arndt MD Unavailable Matthias MCCULLOUGH, Rubia Unavailable Ayaka Castillo LPN Unavailable Unavailable Gaurang Frausto PA-C Unavailable Mona Frausto Unavailable Unavailable Sandrita Sweet LPN Unavailable Unavailable Gualberto Castillo Unavailable Earlene MCCULLOUGH, Janel Unavailable Unavailable Jeremías MCCULLOUGH, Ronald Unavailable Unavailable Nirali Sheets PA-C Unavailable Nanda Nichole LPN Unavailable Unavailab Beena Freeman LPN Unavailable Unavailmaria alejandra wing Unavailable Unavailable Medications Current Medications Medication Drug Class(es) Dates Sig (Normalized) Sig (Original) tadalafil 20 mg oral tablet (2 sources) Phosphodiesterase 5 Inhibitor Tadalafil 20 MG Oral Tablet ; (20 MG) Comments: from urology Completed/Discontinued Medications Medication Drug Class(es) Dates Sig (Normalized) Sig (Original) amoxicillin 875 mg / clavulanate 125 mg oral tablet (2 sources) Penicillin-class Antibacterial Start: 01-22-2016 End: 02-01-2016 take 1 tablet by mouth twice daily AMOXICILLIN-POT CLAVULANATE, 875-125MG (Oral Tablet) ; 1 (one) Tablet two times daily for 10 days Quantity: 20 {Tablet} Refills: 0 Ordered: 22-Jan-2016 MD Nanda Arndt Start: 22-Jan-2016 End: 01-Feb-2016 Status: Inactive loratadine 10 mg oral tablet (2 sources) LORATADINE, 10MG (Oral Tablet) ; 1 as needed (10 MG) Status: Inactive Comments: Medication taken as needed. Problems Active Problems Problem Classification Problem Date Documented Da te Episodic/Chronic Allergic reactions (2 sources) Contact dermatitis due to poison cherry; Translations: [Allergic contact dermatitis due to plants, except food] 04-21-2021 Episodic Cancer of prostate (20 sources) Malignant tumor of prostate; Translations: [Malignant neoplasm of prostate] 11-27-2023 Chronic Past or Other Problems Problem Classification Problem Date Documented Da te Episodic/Chronic Unclassified (2 sources) MCR Well Adult - In general the patient feels well with no complaints, has good energy level and is sleeping well. The patient takes no supplemental vitamins & iron. sleeps 7 hours per night. The patient denies having trouble with bathing, dressing/grooming, toileting, preparing meals and ambulating. The patient denies having trouble with grocery shopping, driving, use of telephone, housework, laundry, preparing/taking medications and finances. The patient does not have Healthcare Power of Radiation Oncologist (says he wants to make decisions but doesn't think he has legal papers for that) or Living Will. Note for MCR Well Adult : -Follows with urology for his PSA which apparently now is every 6 months.He has not had recent colorectal screening or recent lab work. He has not had Pneu 23 or shingles vaccines. 11-27-2022 Unclassified (2 sources) Pre-operative clearance - Surgical procedure(s) planned: other (hernia). Surgeon: (Dr Sebul) and Location of procedure: ([facility]) Previous problems include a reaction to general anesthesia (Low bp, syncope). Prosthetics include eye glasses. 09-03-2019 Unclassified (2 sources) Skin lesion - The skin lesion appeared rapidly and has been occurring for 1 month. It has been increasing in size. The lesion is characterized as red, pustular and raised above the skin. The lesion is located on the face (in the nose) and the upper extremity (under right arm). Note for Skin lesion : This has richard reoccurring for a little over a year. Noone in the house has similar symptoms. Lesions usually drain then resolve. 09-19-2016 Unclassified (2 sources) Skin lesion - The skin lesion has been occurring for 5 days. It has been unchanging in size. The lesion is characterized as red, crusty, weeping, pustular and raised above the skin. The lesion is located on the face (chin). Note for Skin lesion : Has applied warm compresses, hydrogen peroxide and Neosporin to the area. His reports that the other day she removed a fine hair from the skin lesion. New patientHe also has a skin lesion on his forhead and 2 on his foot that he would like examined; he is planning to see dermatology. 01-22-2016 Results Test Name Value Interpretation Reference Range Facil ity Vital Signs Date Time Vital Sign Value Performing Clinician Rajesh mercer 11-27-2023 10:050 Body height 177.8 cm Ronald Veronica LPN [facility], [facility].; [facility], [employer]. 11-27-2023 10:050 Body mass index (BMI) [Ratio] 23.96 kg/m2 Ronald Veronica LPN [facility], [facility].; [facility], [facility]. 11-27-2023 10:050 Body surface area Derived from formula 1.93 m2 Ronald Veronica LPN [facility], [facility].; [facility] [employer] [facility], [facility]. 11-27-2023 10:050 Body weight 75.75 kg Ronald Veronica LPN [facility], [facility].; [facility], [facility]. 11-27-2023 10:26-0500 Diastolic blood pressure 77 mm[Hg] Ronald Veronica LPN [facility], [facility].; [employer] Encounters Encounter Date Encounter Type Care Provider Facility Start: 11-27-2023 End: 11-27-2023 Patient encounter procedure Mathew Kirkpatrick MD Work Phone: [employer]; [employer] Start: 11-27-2023 End: 11-27-2023 Periodic preventive med est patient 65yrs& older Mathew Kirkpatrick MD Work Phone: [employer]. Start: 12-03-2022 End: 12-03-2022 Orders Mathew Kirkpatrick MD Work Phone: [employer] Start: 11-27-2022 End: 11-27-2022 Periodic preventive med est patient 65yrs& older Mathew Kirkpatrick MD Work Phone: [employer] Start: 11-27-2022 End: 11-27-2022 Physical examination Mathew Kirkpatrick MD Work Phone: [employer]; [employer] Start: 10-08-2022 End: 10-08-2022 Orders Mathew Kirkpatrick MD Work Phone: [employer] Start: 04-21-2021 End: 04-21-2021 Orders Mathew Kirkpatrick MD Work Phone: [employer] Start: 03-30-2021 End: 03-30-2021 Orders Mathew Kirkpatrick MD Work Phone: [employer] Start: 07-13-2020 End: 07-13-2020 Orders Mathew Kirkpatrick MD Work Phone: [employer] Start: 02-03-2020 End: 02-03-2020 Orders Mathew Kirkpatrick MD Work Phone: [employer] Start: 01-21-2020 End: 01-21-2020 Orders Mathew Kirkpatrick MD Work Phone: [employer] Start: 01-11-2020 End: 01-11-2020 Telephone follow-up Mathew Kirkpatrick MD Work Phone: [employer] Start: 01-09-2020 End: 01-09-2020 Emergency department patient visit LES SARMIENTO [facility] Start: 09-03-2019 End: 08-31-2019 Historical Summary Mathew Kirkpatrick MD Work Phone: [employer] Start: 09-03-2019 End: 09-03-2019 Patient encounter procedure Mathew Kirkpatrick MD Work Phone: [employer] Start: 07-14-2019 End: 07-14-2019 Orders Mathew Kirkpatrick MD Work Phone: [employer] Start: 07-13-2019 End: 07-14-2019 Orders Mathew Kirkpatrick MD Work Phone: [employer] Start: 01-19-2019 End: 01-19-2019 Historical Summary Mathew Kirkpatrick MD Work Phone: [employer] Start: 12-22-2018 End: 12-22-2018 Orders Mathew Kirkpatrick MD Work Phone: [employer] Start: 12-09-2018 End: 12-09-2018 Orders Mathew Kirkpatrick MD Work Phone: [employer] Start: 12-08-2018 End: 12-08-2018 Patient encounter procedure Mathew Kirkpatrick MD Work Phone: [employer] Start: 12-08-2018 End: 12-08-2018 Patient encounter status Ayaka Castillo LPN [employer]; [employer]. Start: 10-01-2017 End: 10-01-2017 Orders Mathew Kirkpatrick MD Work Phone: [employer] Start: 09-19-2016 End: 09-19-2016 Patient encounter procedure Mathew Kirkpatrick MD Work Phone: [employer] Start: 01-22-2016 End: 01-22-2016 Office outpatient new 10 minutes Mathew Kirkpatrick MD [facility] Patient encounter procedure Luke E Jett PA-C Work Phone: [facility]; [facility] Physical examination [facility]; [facility] Procedures Date Procedure Procedure Detail Performing Clinician Start: 11-27-2023 End: 11-27-2023 Adv care pln/ no alt dcsn mkr docd or refusal Luke E Jett PA-C Work Phone: Start: 11-27-2023 End: 11-27-2023 Depression screening Luke E Jett PA-C Work Phone: Start: 11-27-2023 End: 11-27-2023 Falls risk assessment documented Luke E Jett PA-C Work Phone: Start: 11-27-2023 End: 11-27-2023 PPPS, subseq visit Luke E Jett P A-C Work Phone: Start: 11-27-2023 End: 11-27-2023 Pt falls assess docd w/o fall/injury past year Luke E Jett PA-C Work Phone: Start: 11-27-2023 End: 11-27-2023 Scr dep neg, no plan reqd Luke Tyler Dsouzaste tler PA-C Work Phone: Start: 12-11-2022 End: 12-11-2022 Cologuard Ronald Veronica LPN Plan of Treatment Date Care Activity Detail Author Start: 2027 Assay of prostate specific antigen total PSA TOTAL (PROSTATE SPECIFIC ANTIGEN) (09253) Start: 15-Mar-2027 1:00 Request Comments[facility] Immunizations Immunization Date Immunization Notes Care Provider Fa cility 11-27-2023 pneumococcal Conjugate, unspecified formulation Mathew Kirkpatrick MD Work Phone: [employer]; [employer] 11-27-2023 Pneumococcal conjugate, 20 valent (PCV20) Mathew Kirkpatrick MD Work Phone: [employer]; [employer] Payers Date Payer Category Payer Policy ID Unknown [facility] Social History Date Type Detail Facility Alcohol Use: Alcohol Use: ; O ccasional alcohol use. 7 or fewer drinks per week. [employer]; [employer] Caffeine Use Caffeine Use [employer]; [employer] Current Work/Study Status: [employer] Work/Study Status: ; Self-employed. [employer]; [employer] Tobacco Use: Tobacco Use: ; Never smoker. [employer]; [employer] Male [employer]; [employer] Work Phone: Self-employed [employer]; [employer] Work Phone: Occasional alcohol use [facility] [employer] Work Phone: Never smoked tobacco [employer]; [employer] Work Phone: Summary Purpose Family History Father Status:Active Comments: d. old age at 89 Mother Status:Active Comments: d. old age at 96 Father Status:Active Comments: d. old age at 89 Mother Status:Active Comments: d. old age at 96 Advance Directives No Advanced Directives Records FoundNo Advanced Directives Records Found Additional Source Comments (unrecognized sect ion and content) No Status Records FoundNo Status Records Found INFORMATION SOURCE (unrecogn ized section and content) DATE CREATED AUTHOR AUTHOR'S JANI ATION 05/10/2023 [facility] FOR RECORDS PERTAINING TO PATIENTS WHO ARE OR HAVE BEEN ENROLLED IN A CHEMICAL DEPENDENCY/SUBSTANCEABUSE PROGRAM, SOME INFORMATION MAY BE OMITTED. This clinical summary was aggregated from multiple sources. Caution should be exercised in using it in the provision of clinical care. This summary normalizes information from multiple sources, and as a consequence, information in this document may materially change the coding, format and clinical context of patient data. In addition, data may be omitted in some cases. CLINICAL DECISIONS SHOULD BE BASED ON THE PRIMARY CLINICAL RECORDS. [employer] [facility]. provides no warranty or guarantee of the accuracy or completeness of information in this document.
[2024-01-21 11:31] LABS: CREATININE FINGERSTICK 1.1 mg/dL (0.70-1.30); EGFR FINGERSTICK > 60.0000 mL/min (>60)
== END | disposition home or self-care (01) ==
LOC: MRI 10:57
PROVIDERS: PCP Family Medicine; Referring Provider Student in an Organized Health Care Education/Training Program; Visit Provider Student in an Organized Health Care Education/Training Program
DX: R97.21 Rising PSA following treatment for malignant neoplasm of prostate (principal); C61 Malignant neoplasm of prostate
CPT/HCPCS: 72197; A9575

== ENCOUNTER → 2024-03-02 | Outpatient (CLI) | payer MEDICARE, OTHER, SELFPAY ==
--- NOTE | 2024-03-02 09:56 | VDLE_ITS ---
Reason For Study: Right leg swelling RIGHT LEFT GSV is normal. CFV is compressible, spontaneous, phasic, Acute deep vein thrombosis is noted in the competent, and demonstrates normal EIV distal, CFV, FV, PopV, T/P Trunk, PTV, augmentation. and PeroV. It is NONCOMPRESSIBLE and dilated. Procedure This is a venous duplex using B-mode, color flow and spectral Doppler. Exam performed in department. A preliminary report was called and/or faxed to Calista IBARRA. VL/Venous Duplex US, Unilateral Interpretation Summary Acute deep venous thrombosis right distal external iliac, common femoral, femor al, popliteal, tibioperoneal trunk, posterior tibial, and peroneal veins. Patent and compressible right great saphenous vein Normal flow patterns left common femoral vein Ordering Physician: Sekou Shepherd Referring Physician: Alexi Cruz Performed By: Kaitlin Queen RVT
== END | disposition home or self-care (01) ==
LOC: CVS 09:56
PROVIDERS: PCP Family Medicine; Referring Provider Student in an Organized Health Care Education/Training Program; Visit Provider Student in an Organized Health Care Education/Training Program
DX: M79.89 Other specified soft tissue disorders (principal)
CPT/HCPCS: 93971

== ENCOUNTER → 2024-07-20 | Outpatient (CLI) | payer MEDICARE, OTHER, SELFPAY ==
--- NOTE | 2024-07-20 10:11 | VDLE_ITS ---
Reason For Study: Check for resolution of RLE DVT RIGHT LEFT GSV is normal. CFV is compressible, spontaneous, phasic, PTV is compressible. competent, and demonstrates normal RT PerV is compressible. augmentation. DEIV is COMPRESSIBLE w/flow noted. FV, POPV, T/P TRUNK are DILATED & NONCOMPRESSIBLE. Procedure This is a venous duplex using B-mode, color flow and spectral Doppler. Exam performed in department. A preliminary report was called and/or faxed to Dr. Cruz @ 11:15 am. VL/Venous Duplex US, Unilateral Interpretation Summary Acute deep vein thrombosis is noted in the right femoral vein. Acute deep vein thrombosis is noted in the right popliteal vein. Acute deep vein thrombosis is noted in the right t ibio-peroneal trunk. The remainder of the right lower extremity deep venous system is patent and com pressible, including the right distal external iliac vein, posterior tibial vein, and peroneal vein. The right great saphenous vein appears patent and compressible segmentally. There has been impr ovement since a prior study on 03/02/2024. Ordering Physician: Alexi Cruz Referring Physician: Alexi Cruz Performed By: Mary Jenkins, STEPHANI, RVT
== END | disposition home or self-care (01) ==
LOC: CVS 10:06
PROVIDERS: PCP Family Medicine; Referring Provider Family Medicine; Visit Provider Family Medicine
DX: I82.401 Acute embolism and thrombosis of unspecified deep veins of right lower extremity (principal); I82.411 Acute embolism and thrombosis of right femoral vein
CPT/HCPCS: 93971

== ENCOUNTER → 2025-03-30 | Outpatient (CLI) | payer MEDICARE, OTHER, SELFPAY ==
--- NOTE | 2025-03-30 09:31 | VDLE_ITS ---
Reason For Study Reason For Study: Swelling RIGHT LEFT GSV is normal. CFV is compressible, spontaneous, phasic, competent, CFV is compressible, spontaneous, phasic, competent and demonstrates normal augmentation. and demonstrates normal augmentation. T/P Trunk is compressible. PTV is compressible. RT PerV is compressible. SFJ is competent and measures 1.10 cm. GSV proximal thigh measures 0.57x0.67 cm. GSV at knee measures 0.56x0.61 cm. GSV is competent throughout. SSV mid calf is INCOMPETENT for greater than 0.5 seconds and measures 0.34x0.33 cm. . No flow visualized in FV. Intraluminal echoes visualized. PopV is partially compressible with intraluminal echoes visualized. SSV extractor filler at knee is INCOMPETENT for greater than 0.5 seconds. Measuring 0.40 cm. SSV extractor filler 15 cm above medial malleolus is INCOMPETENT for greater than 0.5 seconds. Measuring 0.53 cm. Procedure This is a venous duplex using B-mode, color flow and spectral Doppler. Exam performed in department. Patient was scanned in reverse Trendelenburg position during reflux assessment. VL/Venous Duplex US, Unilateral Interpretation Summary Chronic deep vein thrombosis noted in the right femoral vein. Positive for reflux in the right small saphenous vein and calf extractor filler veins . Ordering Physician: MD Alexi Stover Referring Physician: nÁgela Parrish Performed By: Nieves Rios RVT
== END | disposition home or self-care (01) ==
LOC: CVS 09:22
PROVIDERS: PCP Family Medicine; Referring Provider Physician Assistant; Visit Provider Physician Assistant
DX: R60.0 Localized edema (principal); I82.401 Acute embolism and thrombosis of unspecified deep veins of right lower extremity
CPT/HCPCS: 93971